=== PATIENT | male | born 1990 | race Caucasian/White ===

== ENCOUNTER 2017-02-18 19:47 | Emergency (ER) | payer OTHER ==
[~2017-02-18] VITALS: Ht 193 cm; Wt 105.8 kg
[~2017-02-18 19:47] MED LIST: ASPIR 8181 M1 PO; LOPRESSOR25 MG PO; TYLENOL WITH C1 EACH PO
[2017-02-18 20:29] LABS: HEMATOCRIT 42.2 % (38.0-50.0); MCH 30.9 PG (29.0-34.0); MCHC 34.6 G/DL (30.0-36.0); MCV 89.4 FL (86-99); MEAN PLAT.VOLUME 10.9 uM^3 (9.0-12.4); PLATELET COUNT 166 K/uL (156-360); RBC DIS.WIDTH-CV 12.2 % (11.8-14.6); RBC DIS.WIDTH-SD 40.1 % (39-53); RED BLOOD COUNT 4.72 M/uL (4.00-5.50)
[2017-02-18 20:47] LABS: CHLORIDE 105 mEq/L (99-109); POTASSIUM 3.6 mEq/L (3.7-5.4); SODIUM 138 mEq/L (136-147)
[2017-02-18 20:50] LABS: GLUCOSE 169 mg/dL (70-99)
[2017-02-18 20:51] LABS: ANION GAP 9 MEQ/L (2-14); TOTAL BILIRUBIN 0.4 mg/dL (0.0-1.0)
[2017-02-18 20:53] LABS: ALKALINE PHOSPHATASE 51 IU/L (3-129); GFR ESTIMATE (CALCULATED) > 59 mL/min/; SERUM ETHYL ALCOHOL < 10 mg/dL
[2017-02-18 20:54] LABS: UREA NITROGEN (BUN) 17 mg/dL (9-23)
[2017-02-18 21:25] VITALS: BP 144/87
== END 2017-02-18 21:28 | disposition left against medical advice (07) ==
LOC: EME → EDBD 19:47 → EME 19:47
PROVIDERS: Emergency Medicine
DX: T40.1X1A Poisoning by heroin, accidental (unintentional), initial encounter (principal); I10 Essential (primary) hypertension; F17.200 Nicotine dependence, unspecified, uncomplicated
CPT/HCPCS: 80053; 81003; 85027; 99281; 99283; G0480